=== PATIENT | male | born 1945 | race Caucasian/White ===

== ENCOUNTER → 2016-12-17 | Outpatient (CLI) | payer BC ==
[~2016-12-17] MED LIST: LISI-729 PO; METO-551 PO; MULT-506 PO; RIVA1TAB4 PO; TRIATAB3 PO
[2016-12-17 17:34] LABS: HEMATOCRIT 40.7 % (42-52); MEAN CELL VOLUME 87.9 fL (80-100); MEAN CORPUSCULAR HEMOGLOBIN 30.2 pg (25-34); MEAN CORPUSCULAR HGB CONC 34.4 g/dl (32-36); MEAN PLATELET VOLUME 10.5 fL (7.4-10.4); PLATELET COUNT 242 K/uL (130-400); RED BLOOD COUNT 4.63 M/uL (4.7-6.1); WHITE BLOOD COUNT 6.31 K/uL (4.8-10.8)
[2016-12-17 17:46] LABS: ALT/SGPT 20 U/L (12-78); BLOOD UREA NITROGEN 27 mg/dl (7-18); BUN/CREATININE RATIO 22.4 (10-20); CALCIUM 8.9 mg/dl (8.5-10.1); CARBON DIOXIDE 23 mmol/L (21-32); CHLORIDE 103 mmol/L (98-107); CHOLESTEROL 129 mg/dl (0-200); GLUCOSE 82 mg/dl (70-99); SODIUM 138 mmol/L (136-145)
[2016-12-17 17:56] LABS: ALKALINE PHOSPHATASE 91 U/L (45-117); AST/SGOT 21 U/L (15-37); CHOLESTEROL/HDL RATIO 2.7; HDL CHOLESTEROL 47 mg/dl; LDL CHOLESTEROL CALCULATED 73 mg/dl; PROSTATE SPECIFIC ANTIGEN 0.995 ng/ml (0.000-4.000); THYROID STIMULATING HORMONE 0.408 uIu/ml (0.300-4.500); TRIGLYCERIDES 47 mg/dl (0-150); VERY LOW DENSITY LIPOPROT CALC 9 mg/dl
[2016-12-18 06:25] LABS: ESTIMATED AVERAGE GLUCOSE 117 mg/dl; HA1C FLAG Normal (Normal)
== END | disposition home or self-care (01) ==
LOC: C.LABBFT 14:08
PROVIDERS: ATTEND Physician Assistant Medical
DX: I10 Essential (primary) hypertension (principal); R73.01 Impaired fasting glucose; Z12.5 Encounter for screening for malignant neoplasm of prostate

== ENCOUNTER → 2017-07-18 | Outpatient (CLI) | payer BC ==
[~2017-07-18] MED LIST changes: +PERFLUTREN LIPID MICROSPHERE (DEFINITY) IV ONE
--- NOTE | 2017-07-18 17:35 | ECHOCARDIOGRAM REPORT ---
*NOTICE TO RECEIVING CONSTITUTION PARTY AGENCY This information is strictly Confidential and protected under [place] law. [place] law prohibits you from making any further disclosure of this information unless further disclosure is expressly permitted by the written consent of the person to whom it pertains or is authorized by law. A general authorization for the release of medical or other information is not sufficient for this purpose. Hospital accepts no responsibility if the information is made available to any other person, INCLUDING THE PATIENT. Interpretation Summary * Name: ANGI LERNER Study Date: 07/18/2017 02:39 PM BP: 121/69 mmHg * Patient Location: [facility] HR: 89 * : 1945 (M/d/yyyy) Gender: Male Height: 69 in * Age: 72 yrs Ethnicity: [place] Weight: 260 lb * Ordering Physician: Jose Khan MD * Referring Physician: Jose Khan * Performed By: Nicki Rowell RDCS * * Reason For Study: CARDIOMYOPATHY * BSA: 2.3 m2 * Moderate biventricular systolic dysfunction. * Mild biventricular dilatation. * Mild concentric left ventricular hypertrophy. * Mild biatrial dilatation. * Trace pulmonic regurgitation. * Trace mitral regurgitation. * Trace tricuspid regurgitation. * Mild aortic root and ascending aortic dilatation. * Mildly elevated estimated right ventricular systolic pressure. * The study was technically difficult. Procedure Details * A complete two-dimensional transthoracic echocardiogram was performed (2D, M-mode, Doppler and color flow Doppler). * The study was technically difficult. * A contrast injection of Definity was performed to improve assessment of LV function. * Contrast was injected into an intravenous site in the right arm. * One vial of Definity ultrasound contrast was diluted in normal saline to a total volume of 10 ml. A total of '5' ml of solution was administered during imaging. * Lot # [id number] of Definity utilized for procedure. * Expiration date 08/25. * The attending nurse who injected the contrast agent was GINO MAY RN. Left Ventricle * The left ventricle is mildly dilated. * There is mild concentric left ventricular hypertrophy. * Left ventricular systolic function is moderately reduced. * Ejection Fraction = 40-45%. * There is moderate global hypokinesis of the left ventricle. Right Ventricle * The right ventricle is mildly dilated. * The right ventricular systolic function is moderately reduced. Atria * The left atrium is mildly dilated. * Right atrium not well visualized. * The right atrium is mildly dilated. Mitral Valve * The mitral valve is normal. * There is no mitral valve stenosis. * There is trace mitral regurgitation. Tricuspid Valve * The tricuspid valve is normal. * There is no tricuspid stenosis. * There is trace tricuspid regurgitation. * Right ventricular systolic pressure is elevated at 30-40mmHg. Aortic Valve * The aortic valve is trileaflet. * The aortic valve opens well. * Aortic stenosis is absent. * No aortic regurgitation is present. Pulmonic Valve * The pulmonic valve is not well visualized. * The pulmonary valve is inadequately visualized, but the Doppler data is adequate for interpretation. * There is no pulmonic valvular stenosis. * Trace pulmonic valvular regurgitation. Great Vessels * Mild aortic root dilatation. * Mildly dilated ascending aorta. Pericardium/Pleural * There is no pericardial effusion. Great Vessels * The inferior vena cava was not visualized. MMode 2D Measurements and Calculations IVSd 1.2 cm IVSs 2.1 cm LVIDd 5.7 cm LVIDs 4.6 cm LVPWd 1.2 cm LVPWs 1.5 cm IVS/LVPW 0.98 FS 20.1 % EDV(Teich) 161.8 ml ESV(Teich) 96.1 ml EF(Teich) 40.6 % EDV(cubed) 187.9 ml ESV(cubed) 95.8 ml EF(cubed) 49.0 % % IVS thick 83.5 % % LVPW thick 25.2 % LV mass(C)d 281.8 grams LV mass(C)dI 122.0 grams/m\S\2 LV mass(C)s 377.4 grams LV mass(C)sI 163.4 grams/m\S\2 CO(Teich) 6.3 l/min CI(Teich) 2.7 l/min/m\S\2 SV(Teich) 65.7 ml SI(Teich) 28.4 ml/m\S\2 CO(cubed) 8.8 l/min CI(cubed) 3.8 l/min/m\S\2 SV(cubed) 92.1 ml SI(cubed) 39.9 ml/m\S\2 Ao root diam 4.3 cm Ao root area 14.4 cm\S\2 ACS 2.1 cm LA dimension 4.7 cm asc Aorta Diam 4.3 cm LA/Ao 1.1 LVOT diam 2.4 cm LVOT area 4.6 cm\S\2 LVLd ap2 9.3 cm LVLs ap2 7.8 cm Doppler Measurements and Calculations MV E max syed 75.6 cm/sec MV A max syed 54.9 cm/sec MV E/A 1.4 MV dec time 0.13 sec Ao V2 max 103.7 cm/sec Ao max PG 4.3 mmHg Ao max PG (full) 2.3 mmHg SHILPA(V,A) 3.2 cm\S\2 SHILPA(V,D) 3.2 cm\S\2 LV V1 max PG 2.0 mmHg LV V1 max 70.6 cm/sec PA V2 max 52.6 cm/sec PA max PG 1.1 mmHg PI end-d syed 105.9 cm/sec TR max syed 251.2 cm/sec
== END | disposition home or self-care (01) ==
LOC: C.CPL 14:30
PROVIDERS: ATTEND Internal Medicine Cardiovascular Disease
DX: I42.9 Cardiomyopathy, unspecified (principal)